=== PATIENT | male | born 1965 | race American Indian/Alaskan Native ===

== ENCOUNTER 2017-12-31 04:41 | Emergency (ER) | payer OTHER ==
[2017-12-31 04:48] VITALS: BP 157/81
[2017-12-31] MEDS ORDERED: ASPIRIN PO ONE (04:57)
[2017-12-31 05:26] LABS: Basophils # (Auto) 0.1 K/mm3 (0.0-0.1); Basophils % (Auto) 0.9 % (0.0-1.8); Eosinophils # (Auto) 0.2 K/mm3 (0.0-0.4); Eosinophils % (Auto) 3.3 % (0.0-4.3); Hematocrit 41.5 % (35.5-45.6); Hemoglobin 13.6 gm/dl (11.8-15.2); Lymphocytes # (Auto) 2.3 K/mm3 (1.2-5.4); Lymphocytes % (Auto) 32.8 % (13.4-35.0); Mean Corpuscular HGB Conc 33 % (32-34); Mean Corpuscular Hemoglobin 27 pg (28-32); Mean Corpuscular Volume 82 fl (84-94); Monocytes # (Auto) 0.9 K/mm3 (0.0-0.8); Monocytes % (Auto) 13.1 % (0.0-7.3); Platelet Count 372 K/mm3 (140-440); Red Blood Count 5.09 M/mm3 (3.65-5.03); Red Cell Distribution Width 14.5 % (13.2-15.2)
[2017-12-31 07:02] LABS: BUN/Creatinine Ratio 14; Blood Urea Nitrogen 11 mg/dL (9-20); Calcium 9.3 mg/dL (8.4-10.2); Hemolysis Index 7
[2017-12-31] MEDS ORDERED: PERCOCET 5/325 PO ONE (10:13)
--- NOTE | 2017-12-31 10:38 | Emergency Department Report ---
ED Lower Extremity HPI - General Chief Complaint: Chest Pain Stated Complaint: LEG PAIN Time Seen by Provider: 12/31/17 10:00 Source: patient, family Mode of arrival: Ambulatory Limitations: No Limitations - History of Present Illness Initial Comments: 52-year-old male with a past medical history of diabetes and CAD with stent presents to the Hospital complaining of left knee pain x 1.5 months. Patient states initially started to have left foot pain which causes him to change his gait. Then developed left knee pain with intermittent swelling that has been worsening over the past 1.5 month. Pain is rated 10/10 in intensity, constant, worse with movement or palpation, and ambulation. No relief with current medication pain is so bad at times that it radiates throughout his whole body including his chest. He denies shortness breath, nausea, or vomiting Patient denies any direct injury to the knee, redness, drainage, or fever. Patient has been back and forth to primary care doctor, allied health teacher, and an orthopedic surgeon. He has had an x-ray, cortisone injection, placed on meloxicam and recently prescribed Tylenol 3. Patient states he is not getting any relief in pain. He was scheduled to start physical therapy tomorrow and is scheduled for outpatient MRI next week. He was told he may have a meniscus injury based on his examination. - Related Data Previous Rx's Medication Instructions Recorded Last Taken Type HYDROcodone/APAP 5-325 [[place] 1 each PO Q6HR PRN #20 tablet 12/31/17 Unknown Rx 5/325] Allergies Allergy/AdvReac Type Severity Reaction Status Date / Time Penicillins Allergy Hives Verified 12/31/17 04:48 ED Review of Systems ROS: Stated complaint: LEG PAIN Other details as noted in HPI Comment: All other systems reviewed and negative ED Past Medical Hx - Past Medical History Previous Medical History?: Yes Hx Heart Attack/AMI: Yes Hx Diabetes: Yes - Surgical History Past Surgical History?: Yes Additional Surgical History: Heart stent - Social History Smoking Status: Never Smoker Substance Use Type: None - Medications Home Medications: Home Medications Medication Instructions Recorded Confirmed Last Taken Type HYDROcodone/APAP 5-325 [[place] 1 each PO Q6HR PRN #20 tablet 12/31/17 Unknown Rx 5/325] ED Physical Exam - General Limitations: No Limitations - Other Other exam information: General: No limitations, patient is alert in no acute distress Head exam: Atraumatic, normocephalic Eyes exam: Normal appearance ENT: Moist mucous membrane, normal oropharynx Neck exam: Normal inspection, full range of motion, no meningismus nontender Respiratory exam: Clear to auscultation bilateral, no wheezes, rales, crackles Cardiovascular: Normal rate and rhythm, normal heart sounds Abdomen: Soft, nondistended, and nontender, with normal bowel sounds, no rebound, or guarding Extremity: Full range of motion, mild left knee swelling with tenderness medial joint space. No warmth or erythema. Back: Normal Inspection, full range of motion, no tenderness Neurologic: Alert, oriented x3, cranial nerves intact, no motor or sensory deficit Psychiatric: normal affect, normal mood Skin: Warm, dry, intact ED Course Vital Signs 12/31/17 04:41 Temperature 99.0 F Pulse Rate 99 H Respiratory 20 Rate Blood Pressure 157/81 O2 Sat by Pulse 97 Oximetry - Reevaluation(s) Reevaluation #1: 12/31/17 10:38 Percocet provided ED Lower Extremity MDM - Lab Data Result diagrams: 12/31/17 05:00 12/31/17 05:00 Lab Results 12/31/17 12/31/17 12/31/17 Range/Units 05:00 05:00 07:34 WBC 7.1 (4.5-11.0) K/mm3 RBC 5.09 H (3.65-5.03) M/mm3 Hgb 13.6 (11.8-15.2) gm/dl Hct 41.5 (35.5-45.6) % MCV 82 L (84-94) fl MCH 27 L (28-32) pg MCHC 33 (32-34) % RDW 14.5 (13.2-15.2) % Plt Count 372 (140-440) K/mm3 Lymph % (Auto) 32.8 (13.4-35.0) % Major % (Auto) 13.1 H (0.0-7.3) % Eos % (Auto) 3.3 (0.0-4.3) % Baso % (Auto) 0.9 (0.0-1.8) % Lymph # 2.3 (1.2-5.4) K/mm3 Major # 0.9 H (0.0-0.8) K/mm3 Eos # 0.2 (0.0-0.4) K/mm3 Baso # 0.1 (0.0-0.1) K/mm3 Seg Neutrophils % 49.9 (40.0-70.0) % Seg Neutrophils # 3.6 (1.8-7.7) K/mm3 Sodium 139 (137-145) mmol/L Potassium 3.6 (3.6-5.0) mmol/L Chloride 95.5 L (98-107) mmol/L Carbon Dioxide 27 (22-30) mmol/L Anion Gap 20 mmol/L BUN 11 (9-20) mg/dL Creatinine 0.8 (0.8-1.5) mg/dL Estimated GFR > 60 ml/min BUN/Creatinine Ratio 14 % Glucose 122 H (75-100) mg/dL Calcium 9.3 (8.4-10.2) mg/dL Troponin T < 0.010 < 0.010 (0.00-0.029) ng/mL - EKG Data -: EKG Interpreted by Or EKG shows normal: sinus rhythm, axis (qrs 24), QRS complexes (qrsd 105), ST-T waves (no stemi/t inv) Rate: normal (93) - EKG Data When compared to previous EKG there are: previous EKG unavailable - Radiology Data Radiology results: report reviewed Left knee x-ray: Mild tricompartmental osteoarthrosis of the left knee with small suprapatellar joint effusion. - Medical Decision Making Patient has pain and tenderness greatest at the medial meniscus/80 ligament area of the left fracture identified. No suspicion for infection. Symptoms ongoing and chronic. He is undergoing outpatient workup. Instructed to continue his current anti-inflammatory medication and [place] will be prescribed for additional relief. Knee immobilizers and crutches provided for additional support Chest pain is atypical and seems to originate from knee pain. Patient has unremarkable EKG, 2 negative cardiac, and no associated cardiac symptoms - Differential Diagnosis fracture, contusion, sprain, meniscus, ligament injury Critical Care Time: No Critical care attestation.: If time is entered above; I have spent that time in minutes in the direct care of this critically ill patient, excluding procedure time. ED Disposition Clinical Impression: Left medial knee pain, Arthritis of knee, left, Knee effusion, left, Atypical chest pain Disposition: TO HOME OR SELFCARE Is pt being admited?: No Does the pt Need Aspirin: No Condition: Stable Instructions: Chest Pain (ED), Knee Effusion (ED) Additional Instructions: Stop the Tylenol No. 3. Take the [place] and the meloxicam as needed for pain. You may take both medications since they do not interact with each other. Continue outpatient workup and follow-up with orthopedic surgery. Prescriptions: HYDROcodone/APAP 5-325 [[place] 5/325] 1 each PO Q6HR PRN #20 tablet PRN Reason: Pain Referrals: PRIMARY CARE,MD [Primary Care Provider] - 3-5 Days your, orthopedic doctor [Other] - 3-5 Days Time of Disposition: 10:42
--- NOTE | 2018-01-03 14:23 | XRay Report ---
FINAL REPORT EXAM: XR KNEE 3V LT HISTORY: left knee swelling and pain COMPARISONS: None. FINDINGS: Three views left knee Small suprapatellar joint effusion. Mild tricompartmental osteoarthrosis. No gross malalignment or deformity. No fracture. IMPRESSION: Mild tricompartmental osteoarthrosis of the left knee with small suprapatellar joint effusion. If there is concern for infection, consider aspiration.
== END 2017-12-31 11:17 | disposition home or self-care (01) ==
LOC: ED 04:41
DX: M17.12 Unilateral primary osteoarthritis, left knee (principal); M25.462 Effusion, left knee; R07.89 Other chest pain; I25.2 Old myocardial infarction; E11.9 Type 2 diabetes mellitus without complications; Z88.0 Allergy status to penicillin
CPT/HCPCS: 36415; 80048; 84484; 85025; 93005; 93010